=== PATIENT | male | born 1950 | race Caucasian/White ===

== ENCOUNTER → 2017-02-17 | Outpatient (CLI) | payer MEDICARE | END | disposition home or self-care (01) | LOC: GMAM 11:22 | PROVIDERS: ATTEND Family Medicine | DX: Z12.5 Encounter for screening for malignant neoplasm of prostate (principal) ==

== ENCOUNTER → 2017-12-02 | Outpatient (CLI) | payer MEDICARE | LOC: GMAM 13:36 | PROVIDERS: ATTEND Family Medicine | DX: R31.21 Asymptomatic microscopic hematuria (principal) ==

== ENCOUNTER → 2019-07-04 | Outpatient (CLI) | payer MEDICARE | LOC: GMAL 12:36 | PROVIDERS: ATTEND Family Medicine | DX: Z12.5 Encounter for screening for malignant neoplasm of prostate (principal); I10 Essential (primary) hypertension; R73.9 Hyperglycemia, unspecified ==

== ENCOUNTER → 2020-04-28 | Outpatient (CLI) | payer MEDICARE ==
--- NOTE | 2020-04-29 12:11 | US ---
EXAM DESCRIPTION: Soft Tissue,Extremity: ULTRASOUND. CLINICAL HISTORY: 69 years Male RT AXILLA MASS COMPARISON: None Available. TECHNIQUE: Transcutaneous scanning: Patterson-scale and Doppler modes. FINDINGS: Scanning right axilla at site of palpable masses. Mostly hypoechoic partially circumscribed mass with partially surround enhancement and partial sound shadowing. Eccentric echogenic region posterior. Minimally vascular. 5.1 x 2.9 x 3.1 cm. Vascularity not seen in the echogenic hilum. Similar appearing smaller mass with more lobulations measuring 3.4 x 2.4 x 2.4 cm with minimal vascularity. No distinct cyst, no fluid collection, no large calcifications. IMPRESSION: Enlarged reactive abnormal lymph nodes in the right axilla. Consider image guided (ultrasound) needle core biopsy of the lymph nodes. Electronically signed by: Enoc Knutson MD 04/29/2020 12:09 PM CDT
== END ==
LOC: US 13:11
PROVIDERS: ATTEND Family Medicine
DX: R59.9 Enlarged lymph nodes, unspecified (principal)

== ENCOUNTER → 2020-05-16 | Outpatient (CLI) | payer MEDICARE ==
--- NOTE | 2020-05-19 20:07 | CT ---
EXAM DESCRIPTION: Abdoment/Pelvis w/o Contrast: Computed Tomography. 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 COMPARISON: Ultrasound right upper extremity axilla April 28. Ultrasound-guided core needle biopsy right axillary mass May 08. CT scan abdomen and pelvis without IV contrast May 2013. TECHNIQUE: Spiral-axial scans 2.5 x 2.5 mm intervals through the abdomen and pelvis without oral or IV contrast. Coronal and sagittal 2.0 mm reconstructions. Total Exam DLP: 1200 tomGy-cm. This exam was performed according to our departmental CT dose-optimization program which includes automated exposure control, adjustment of the mA and/or kV according to patient size and/or use of iterative reconstruction technique; to reduce radiation dose to as low as reasonably achievable (ALARA). Technically limited study due to lack of IV contrast, due to poor renal function. FINDINGS: Lung bases and pleura: Pleural parenchymal scarring left lower lobe and volume loss. Partial visualization of nodule or scarring left lower lobe mean diameter 6.5 mm. Bilateral pleural thickening without effusion. Liver, stomach, spleen, and adrenal glands: Unremarkable. Pancreas, Gallbladder, and Ducts: Gallbladder contracted or distally removed. No fluid in the gallbladder fossa. Normal caliber of the ducts. Pancreas is negative. Splenic artery calcifications. Kidneys and Ureters: Marked cortical atrophy bilateral kidneys more left than right. 3 mm stone. Collecting system right kidney. No hydronephrosis bilaterally. 3.4 mm stone distal right ureter approximately 5 cm from the ureterovesical junction. No periureteral edema. Ureter is not distended from the right kidney to the stone. Left ureter unremarkable. Mesentery: No free air or free fluid. No fatty stranding and fascial thickening. Aorta: Moderate atherosclerotic calcifications distal abdominal aorta bilateral proximal common iliacs and internal iliac arteries with normal outer caliber. Small Bowel: Intermittent segments with minimal distention with fluid and air-fluid levels. No evidence of obstruction. One segment in the left lower quadrant of the abdomen contains echogenic material along with fluid, on axial series 2, image 102. No bowel narrowing or stenosis or adjacent inflammatory fatty changes Terminal Ileum/Cecum: Normal caliber. Surgical clip inferior cecum most likely related to appendectomy. Colon: Mild amount of fecal matter in the proximal mid and distal colon with moderate redundancy of the sigmoid. Diverticula from the splenic flexure to the proximal sigmoid colon. Moderate redundancy of the sigmoid colon. No obstruction or inflammatory changes. Pelvic Organs: Prostate gland is abutting the base of urinary bladder. Prostate dimensions are 4.5 x 3.2 cm transverse. Bladder is small demonstrating wall thickening. No fluid in the anterior peritoneal reflection and no pelvic mass. Spine and Bony Pelvis: Minimal narrowing of the thoracic disc spaces. Minimal facet arthrosis. Lumbar levoscoliosis. Minimal hip joint space narrowing and atrophic changes acetabula. Heterogeneous marrow signal femoral heads and femoral necks. Abdominal Wall/Back Soft Tissues: 10 anterior abdominal wall with significant atrophy of the bilateral rectus abdominis muscles and atrophy also in the lateral oblique muscles of the abdominal wall. Strandy mesenteric hernia right anterolateral abdominal wall with the defect measuring 3.1 cm craniocaudal and 5.4 cm transverse with no bowel incarceration. Since the prior study. In the upper abdomen, the rudimentary abdominal wall is abutting the anterior subdermal surface. This has progressed since the prior study. IMPRESSION: 1. Study limited due to lack of IV contrast, secondary to poor renal function. No mass in the abdomen or pelvis. No free fluid or free air. No inflammatory changes 2. Diverticulosis of the descending colon and proximal sigmoid colon. Moderate redundancy of the sigmoid colon. No complications. Intermittent mild distention of the small bowel with no definite obstruction. 3. Pleural parenchymal scarring in the left lower lobe with volume loss. Partial visualization of a pleural nodule or nodular scar. Consider CT scan of the chest/thorax. 4. Bilateral kidneys are small with marked cortical atrophy. 3 mm nonobstructing stone right kidney. 3.4 mm nonobstructing stone distal right ureter with no periureteral edema or proximal right ureteral dilation. 5. Large prostate gland impressing on the base of the urinary bladder which is not distended and demonstrates wall thickening. No free fluid. 6. Chronic atrophy of the anterior abdominal wall musculature, with diastases and new hernia right anterior lateral abdominal wall. No complications. Electronically signed by: Enoc Knutson MD 05/19/2020 8:05 PM CDT
== END ==
LOC: CT 09:30
PROVIDERS: ATTEND Family Medicine
DX: C44.621 Squamous cell carcinoma of skin of unspecified upper limb, including shoulder (principal); K57.30 Diverticulosis of large intestine without perforation or abscess without bleeding; K63.89 Other specified diseases of intestine; N40.0 Benign prostatic hyperplasia without lower urinary tract symptoms; J98.4 Other disorders of lung; N26.1 Atrophy of kidney (terminal); R91.8 Other nonspecific abnormal finding of lung field; N20.2 Calculus of kidney with calculus of ureter; M62.58 Muscle wasting and atrophy, not elsewhere classified, other site; K46.9 Unspecified abdominal hernia without obstruction or gangrene

== ENCOUNTER → 2020-05-22 | Outpatient (CLI) | payer MEDICARE ==
--- NOTE | 2020-05-23 08:00 | CT ---
EXAM: Chest w/o Contrast CLINICAL HISTORY: SQUAMOUS CELL CARCINOMA OF SKIN COMPARISON STUDY: CT chest from June 01, 2016 TECHNICAL: Non-contrast CT images were performed through the chest. Sagittal and coronal reconstructions were performed. FINDINGS: Enlarged right axillary lymph nodes are present. The largest solitary node measures 4 cm x 5 cm there are multiple other enlarged and prominent lymph nodes. No left axillary adenopathy. No mediastinal adenopathy. The heart is not enlarged. The aorta is non-dilated. The limited images of the upper abdomen are without acute abnormality.. Pulmonary parenchymal windows show no mass, consolidation, interstitial pulmonary edema, or pleural effusion. There are chronic changes of the left lower lobe and old fractures of the left posterior lateral ribs. These findings are similar to 2016. IMPRESSION: 1. Enlarged right axillary lymphadenopathy in a patient with a history of neoplasm should be considered suspicious for metastasis/neoplasm. 2. No pulmonary abnormality, mass or nodule. No mediastinal lymphadenopathy. This exam was performed according to our departmental dose-optimization program, which includes automated exposure control, adjustment of the mA and/or kV according to patient size and/or use of iterative reconstruction technique. Electronically signed by: Ed Karimi MD 05/23/2020 7:58 AM CDT
== END ==
LOC: MRI 10:35
PROVIDERS: ATTEND Family Medicine
DX: C44.621 Squamous cell carcinoma of skin of unspecified upper limb, including shoulder (principal); R59.1 Generalized enlarged lymph nodes

== ENCOUNTER → 2020-05-23 | Outpatient (CLI) | payer MEDICARE ==
--- NOTE | 2020-05-26 11:25 | CT ---
EXAM DESCRIPTION: Soft Tissue Neck CLINICAL HISTORY: 69 years, Male, SQUAMOUS CELL CARCINOMA OF SKIN UPPER LIMB INCLUDING SHOULDER COMPARISON: None. TECHNIQUE: CT of the neck is performed without IV contrast. MPR images are created and reviewed as well. FINDINGS: 2.[address] scanning through the neck was performed. Lung apices appear clear. Normal appearance of the thyroid gland. Left lower cervical/supraclavicular nodes measure 5 mm and 8 mm short axis dimension (axial images 71 and 75, series 2). Significance is uncertain. These could be followed. Tortuous veins in the left neck. Symmetrical appearance of the parotid glands and submandibular salivary glands. No mid or upper cervical roscoe enlargement. Parapharyngeal fatty spaces are normal. The base of the tongue appears normal. Normal epiglottis and aryepiglottic folds. No enlargement of tonsillar tissue. Fluid or mucosal thickening in the right sphenoid sinus and right posterior ethmoid air cell consistent with chronic sinusitis. Lower portion of the brain shows low density left occipital lobe which could be old infarction. Patient had a CT of the head June 05, 2013 but no infarct was seen at that time. MRI of the brain recommended for further evaluation without and with contrast. IMPRESSION: Lower brain is partially included on the scan with low density appearance of the left occipital lobe. Further evaluation with MRI of the brain without and with gadolinium contrast recommended. Inflammatory sinus disease of the right sphenoid and posterior right ethmoid sinuses. Mildly prominent left lower cervical/supraclavicular nodes with short axis dimension measurements of 8 mm and 5 mm. See above. This exam was performed according to our departmental dose-optimization program, which includes automated exposure control, adjustment of the mA and/or kV according to patient size and/or use of iterative reconstruction technique. Electronically signed by: Nolan Vaca MD 05/26/2020 11:23 AM CDT
== END ==
LOC: CT 13:07
PROVIDERS: ATTEND Family Medicine
DX: C44.621 Squamous cell carcinoma of skin of unspecified upper limb, including shoulder (principal); J01.30 Acute sphenoidal sinusitis, unspecified; J01.20 Acute ethmoidal sinusitis, unspecified; G93.9 Disorder of brain, unspecified; R59.9 Enlarged lymph nodes, unspecified

== ENCOUNTER → 2020-06-24 | Outpatient (CLI) | payer MEDICARE ==
--- NOTE | 2020-06-24 15:22 | US ---
EXAM DESCRIPTION: Venous,Upper Extremity RT: ULTRASOUND. CLINICAL HISTORY: CARCINOMA. Squamous cell carcinoma posterior right axilla. Positive PET scan in the right axilla and right clavicular region. Swelling of the right forearm. COMPARISON: None Available. TECHNIQUE: Two -dimensional and doppler sonographic evaluation of the deep venous system of the right upper extremity. FINDINGS: Doppler evaluation shows normal color flow and normal phasicity and augmentation of the right subclavian, jugular, axillary, basilic, cephalic, brachial, radial vein and ulnar vein. The right upper extremity deep veins showed normal occlusion with transducer pressure. Two-dimensional survey showed no echogenic thrombus within these veins. Irregular hypoechoic mass in the right subclavian area measuring 2.2 x 1.7 x 1.5 cm with minimal vascularity. Not encroaching on the right subclavian vein. Smaller masses with similar echogenicity extending toward the right axillary node region. IMPRESSION: 1. Duplex ultrasound evaluation of the right upper extremity deep venous system showing no thrombosis . 2. 2.2 cm abnormal appearing mass with minimal vascularity. Most likely lymph node with metastasis or soft tissue metastasis. Correlates with history of positive PET scan. Electronically signed by: Enoc Knutson MD 06/24/2020 3:20 PM CDT
== END ==
LOC: US 14:21
PROVIDERS: ATTEND Internal Medicine
DX: C80.1 Malignant (primary) neoplasm, unspecified (principal); M79.622 Pain in left upper arm; R22.31 Localized swelling, mass and lump, right upper limb